=== PATIENT | male | born 1975 | race Asian ===

== ENCOUNTER 2016-08-05 09:35 | Outpatient (CLI) | payer OTHER ==
[2016-08-05 10:25] LABS: BASOPHILS # (AUTO) 0.1 K/uL (0.0-0.2); BASOPHILS % (AUTO) 1.2 % (0.0-2.0); EOSINOPHILS # (AUTO) 0.2 K/uL (0.0-0.4); HEMATOCRIT 52.2 % (36-54); HEMOGLOBIN 16.8 g/dL (14.0-18.0); LYMPHOCYTES # (AUTO) 1.8 K/uL (1.0-5.5); LYMPHOCYTES % (AUTO) 20.9 % (20.5-51.5); MEAN CORPUSCULAR HEMOGLOBIN 29 pg (27-31); MEAN CORPUSCULAR HGB CONC 32 % (32-36); MEAN CORPUSCULAR VOLUME 89 fL (79.0-98.0); MONOCYTES # (AUTO) 0.6 K/uL (0.0-1.0); MONOCYTES % (AUTO) 6.5 % (1.7-9.3); NEUTROPHILS # (AUTO) 6.1 K/uL (1.8-7.7); NEUTROPHILS % (AUTO) 69.4 % (40.0-70.0); PLATELET COUNT (AUTO) 396 K/uL (130-430); RED BLOOD CELL COUNT(AUTO) 5.89 MIL/uL (4.2-6.2); RED CELL DISTRIBUTION WIDTH 12.5 % (9.0-15.0); WHITE BLOOD COUNT (AUTO) 8.8 K/uL (4.8-10.8)
[2016-08-05 10:30] LABS: BILIRUBIN,URINE NEGATIVE (NEGATIVE); BLOOD, URINE 2+ (NEGATIVE); CLARITY/URINE CLEAR (CLEAR); COLOR,URINE YELLOW (YELLOW); GLUCOSE,URINE NEGATIVE (NEGATIVE); KETONES,URINE NEGATIVE (NEGATIVE); LEUKOCYTE ESTERASE ,URINE NEGATIVE (NEGATIVE); NITRITE, URINE NEGATIVE (NEGATIVE); PH,URINE 6.5 (5.0-8.0); PROTEIN URINE NEGATIVE (NEGATIVE); UROBILINOGEN,URINE 0.2 (0.2-1.0)
[2016-08-05 10:35] LABS: BACTERIA,URINE RARE /HPF (None Seen); MUCUS,URINE None Seen /LPF (None Seen); WBC,URINE 0-3 /HPF (0-3)
[2016-08-05 10:45] LABS: ALBUMIN 4.1 g/dL (3.4-4.8); CALCIUM 9.5 mg/dL (8.4-11.0); CREATININE 1.29 mg/dL (0.55-1.30); POTASSIUM 3.8 mmol/L (3.5-5.1); THYROID STIMULATING HORMONE 0.9 uIu/mL (0.34-4.82); TOTAL BILIRUBIN 0.5 mg/dL (0.0-1.0); TOTAL PROTEIN, SERUM 8.7 g/dL (6.4-8.3)
[2016-08-07] LABS: HEMOGLOBIN A1C 8.4 % (4.8-5.6)
== END 2016-08-05 18:20 | disposition home or self-care (01) ==
LOC: SLB 09:35
PROVIDERS: ATTEND Internal Medicine
DX: E11.65 Type 2 diabetes mellitus with hyperglycemia (principal); E66.9 Obesity, unspecified; R31.9 Hematuria, unspecified; Z90.49 Acquired absence of other specified parts of digestive tract; R16.1 Splenomegaly, not elsewhere classified; R16.0 Hepatomegaly, not elsewhere classified; K76.0 Fatty (change of) liver, not elsewhere classified
CPT/HCPCS: 36415; 76700-TC; 80053; 80061; 81000-TC; 82306; 82607; 83036; 84443-TC; 85025

== ENCOUNTER 2016-09-28 12:17 | Outpatient (CLI) | payer OTHER | END 2016-09-28 18:32 | disposition home or self-care (01) | LOC: SUS 12:17 | PROVIDERS: ATTEND Internal Medicine | DX: N20.0 Calculus of kidney (principal); N28.1 Cyst of kidney, acquired; N13.30 Unspecified hydronephrosis | CPT/HCPCS: 76770 ==

== ENCOUNTER 2016-10-01 11:59 | Inpatient (IN) | payer OTHER ==
[~2016-10-01] VITALS: Ht 170.2 cm; Wt 91.6 kg
[2016-10-01 12:13] VITALS: BP_SYST 139
[2016-10-01 12:44] LABS: BASOPHILS # (AUTO) 0.1 K/uL (0.0-0.2); BASOPHILS % (AUTO) 0.8 % (0.0-2.0); BILIRUBIN,URINE NEGATIVE (NEGATIVE); BLOOD, URINE 2+ (NEGATIVE); CLARITY/URINE CLEAR (CLEAR); COLOR,URINE YELLOW (YELLOW); EOSINOPHILS # (AUTO) 0.1 K/uL (0.0-0.4); EOSINOPHILS % (AUTO) 0.5 % (0.0-4.0); GLUCOSE,URINE NEGATIVE (NEGATIVE); HEMATOCRIT 45.2 % (36-54); HEMOGLOBIN 14.9 g/dL (14.0-18.0); KETONES,URINE NEGATIVE (NEGATIVE); LEUKOCYTE ESTERASE ,URINE 1+ (NEGATIVE); LYMPHOCYTES # (AUTO) 1.5 K/uL (1.0-5.5); LYMPHOCYTES % (AUTO) 8.9 % (20.5-51.5); MEAN CORPUSCULAR HEMOGLOBIN 29 pg (27-31); MEAN CORPUSCULAR HGB CONC 33 % (32-36); MEAN CORPUSCULAR VOLUME 88 fL (79.0-98.0); MONOCYTES # (AUTO) 0.6 K/uL (0.0-1.0); MONOCYTES % (AUTO) 3.8 % (1.7-9.3); NEUTROPHILS # (AUTO) 14.1 K/uL (1.8-7.7); NITRITE, URINE NEGATIVE (NEGATIVE); PH,URINE 5.5 (5.0-8.0); PLATELET COUNT (AUTO) 707 K/uL (130-430); PROTEIN URINE NEGATIVE (NEGATIVE); RED BLOOD CELL COUNT(AUTO) 5.16 MIL/uL (4.2-6.2); RED CELL DISTRIBUTION WIDTH 12.2 % (9.0-15.0); UROBILINOGEN,URINE 0.2 (0.2-1.0); WHITE BLOOD COUNT (AUTO) 16.4 K/uL (4.8-10.8)
[2016-10-01 12:51] LABS: BACTERIA,URINE FEW /HPF (None Seen)
[2016-10-01 12:52] LABS: MUCUS,URINE 1+ /LPF (None Seen)
[2016-10-01 12:53] LABS: CALCIUM 9.8 mg/dL (8.4-11.0); CREATININE 1.72 mg/dL (0.55-1.30); POTASSIUM 4.3 mmol/L (3.5-5.1)
[2016-10-01 12:58] LABS: TOTAL BILIRUBIN 0.4 mg/dL (0.0-1.0)
[2016-10-01] MEDS ORDERED: cefTRIAXone 1 GM in D5W 50 ML IV ONE (13:15)
[2016-10-01] MEDS: 0.45% NS 1,000 ML IV SCH ×2 (13:45→23:11)
[2016-10-01] MEDS ORDERED: cefTRIAXone 1 GM IVPB PREMIX 50 ML IV ONE (13:45)
[2016-10-01] MEDS ORDERED: DILT240C91 PO (14:11)
[2016-10-01] MEDS ORDERED: FOLI-59 PO (14:11)
[2016-10-01] MEDS ORDERED: OLME20TA14 PO (14:11)
[2016-10-01] MEDS ORDERED: MAGN500C17 PO (14:11)
[2016-10-01] MEDS ORDERED: GLU500 PO (14:11)
[2016-10-01] MEDS ORDERED: DOXA2TAB PO (14:11)
[2016-10-01 14:32] VITALS: BP_SYST 151
[2016-10-01 15:50] LABS: PROTHROMBIN TIME 10.4 SECS (9.5-12.5)
[2016-10-01 16:17] VITALS: BP_SYST 134
[2016-10-01] MEDS ORDERED: TEMAZEPAM 15 MG CAPSULE PO PRN (19:30)
[2016-10-01] MEDS ORDERED: HYDROcodone/ACETAMIN 5-325 MG TAB (NORCO/ VICODIN) PO PRN (19:30)
[2016-10-01] MEDS ORDERED: DEXTROSE 50% JECT 50 ML DISP.SYRIN IVP PRN (19:30)
[2016-10-01] MEDS ORDERED: ACETAMINOPHEN 325 MG TABLET PO PRN (19:30)
[2016-10-01] MEDS ORDERED: ONDANSETRON HCL 4 MG/2 ML VIAL IVP PRN (19:30)
[2016-10-01] MEDS: cefTRIAXone 1 GM in D5W 50 ML IV SCH (19:30)
[2016-10-01] MEDS ORDERED: DOXAZOSIN MESYLATE 2 MG TABLET PO ONE (19:45)
[2016-10-01] MEDS ORDERED: TAMSULOSIN HCL 0.4 MG CAP PO ONE (19:45)
[2016-10-01 20:00] VITALS: BP_SYST 132
[2016-10-01] MEDS ORDERED: MORPHINE 4 MG/ML INJ. SYRINGE IVP PRN (20:00)
[2016-10-01] MEDS: TAMSULOSIN HCL 0.4 MG CAP PO SCH (20:15)
[2016-10-01] MEDS: DILTIAZEM HCL 240 MG CAP.SR.24H PO SCH (20:15)
[2016-10-01] MEDS: MORPHINE 2 MG/ML INJ. SYRINGE IVP PRN (20:16)
[2016-10-01] MEDS: metroNIDAZOLE 500 mg/NS 100 ML IV SCH (21:13)
[2016-10-01] MEDS: HYDROmorphone 1 MG INJ. 1 MG/ML AMPUL IVP PRN (23:11)
[2016-10-01] MEDS ORDERED: DOCUSATE SODIUM 250 MG CAPSULE PO ONE ×2 (23:15)
[2016-10-02] VITALS (7 sets, daily range): BP systolic 111–149
[2016-10-02] MEDS: HYDROmorphone 1 MG INJ. 1 MG/ML AMPUL IVP PRN ×5 (04:29→23:37)
[2016-10-02] MEDS: metroNIDAZOLE 500 mg/NS 100 ML IV SCH ×3 (06:18→21:26)
[2016-10-02 06:19] LABS: BASOPHILS % (AUTO) 0.3 % (0.0-2.0); EOSINOPHILS # (AUTO) 0.1 K/uL (0.0-0.4); EOSINOPHILS % (AUTO) 0.8 % (0.0-4.0); HEMATOCRIT 38.8 % (36-54); HEMOGLOBIN 13.1 g/dL (14.0-18.0); LYMPHOCYTES # (AUTO) 1.2 K/uL (1.0-5.5); LYMPHOCYTES % (AUTO) 7.7 % (20.5-51.5); MEAN CORPUSCULAR HEMOGLOBIN 29 pg (27-31); MEAN CORPUSCULAR HGB CONC 34 % (32-36); MEAN CORPUSCULAR VOLUME 87 fL (79.0-98.0); MONOCYTES # (AUTO) 0.7 K/uL (0.0-1.0); MONOCYTES % (AUTO) 4.9 % (1.7-9.3); NEUTROPHILS % (AUTO) 86.3 % (40.0-70.0); RED BLOOD CELL COUNT(AUTO) 4.46 MIL/uL (4.2-6.2); RED CELL DISTRIBUTION WIDTH 12.3 % (9.0-15.0)
[2016-10-02 06:28] LABS: PLATELET COUNT (AUTO) 636 K/uL (130-430)
[2016-10-02 06:48] LABS: ALBUMIN 3.4 g/dL (3.4-4.8); CALCIUM 8.7 mg/dL (8.4-11.0); CREATININE 1.93 mg/dL (0.55-1.30); THYROID STIMULATING HORMONE 1.61 uIu/mL (0.34-4.82); TOTAL BILIRUBIN 0.6 mg/dL (0.0-1.0); TOTAL PROTEIN, SERUM 7.7 g/dL (6.4-8.3)
[2016-10-02] MEDS ORDERED: NS 1000 ML BAG IV ONE (08:06)
[2016-10-02] MEDS ORDERED: fentaNYL CITRATE/PF 100 MCG/2 ML AMP IVP ONE (08:06)
[2016-10-02] MEDS ORDERED: SEVOFLURANE 15 MIN GAS INH ONE (08:06)
[2016-10-02] MEDS ORDERED: KETOROLAC TROMETHAMINE 30 MG VIAL IVP ONE (08:06)
[2016-10-02] MEDS ORDERED: MIDAZOLAM HCL 5 MG/5 ML VIAL IVP ONE (08:06)
[2016-10-02] MEDS ORDERED: ONDANSETRON HCL 4 MG/2 ML VIAL IVP ONE (08:06)
[2016-10-02] MEDS ORDERED: PROPOFOL 200MG/ 20ML VIAL (DIPRIVAN) IV ONE (08:06)
[2016-10-02] MEDS ORDERED: NS IRRIG SOLN 5000 ML IR ONE (08:06)
[2016-10-02] MEDS ORDERED: IOHEXOL 0 ML IV ONE (08:33)
[2016-10-02] MEDS ORDERED: NACL 0.9% 1,000 ML IV SCH (08:55)
[2016-10-02] MEDS ORDERED: KETOROLAC TROMETHAMINE 30 MG VIAL IVP PRN (09:00)
[2016-10-02] MEDS ORDERED: LOSARTAN POTASSIUM 50 MG TABLET (COZAAR) PO SCH (09:00)
[2016-10-02] MEDS ORDERED: MEPERIDINE HCL/PF 25 MG/ML DISP.SYRIN IVP PRN ×2 (09:00)
[2016-10-02] MEDS ORDERED: OLMESARTAN MEDOXOMIL 20 MG TABLET PO SCH (09:00)
[2016-10-02] MEDS ORDERED: HYDROmorphone 2 MG/ML VIAL IVP PRN ×2 (09:00)
[2016-10-02] MEDS ORDERED: HYDROmorphone 1 MG INJ. 1 MG/ML AMPUL IVP PRN (09:00)
[2016-10-02] MEDS ORDERED: ONDANSETRON HCL 4 MG/2 ML VIAL IVP PRN (09:00)
[2016-10-02] MEDS: 0.45% NS 1,000 ML IV SCH ×3 (09:45→23:39)
[2016-10-02] MEDS: DOCUSATE SODIUM 250 MG CAPSULE PO SCH ×2 (10:34→20:44)
[2016-10-02] MEDS: DILTIAZEM HCL 240 MG CAP.SR.24H PO SCH ×2 (10:35→20:44)
[2016-10-02] MEDS: TAMSULOSIN HCL 0.4 MG CAP PO SCH ×2 (10:35→21:26)
[2016-10-02] MEDS: INSULIN REGULAR, HUMAN 100 UNITS/ML, 10 ML VIAL (novoLIN R) SUBCUT PRN ×2 (17:34→21:29)
[2016-10-02] MEDS ORDERED: DOXAZOSIN MESYLATE 2 MG TABLET PO SCH (18:00)
[2016-10-02] MEDS: MORPHINE 2 MG/ML INJ. SYRINGE IVP PRN (18:44)
[2016-10-02] MEDS: cefTRIAXone 1 GM in D5W 50 ML IV SCH (18:46)
[2016-10-03 00:19] VITALS: BP_SYST 132
[2016-10-03] MEDS: HYDROmorphone 1 MG INJ. 1 MG/ML AMPUL IVP PRN ×2 (02:27→04:30)
[2016-10-03 04:00] VITALS: BP_SYST 145
[2016-10-03] MEDS: metroNIDAZOLE 500 mg/NS 100 ML IV SCH ×3 (05:58→21:25)
[2016-10-03] MEDS: INSULIN REGULAR, HUMAN 100 UNITS/ML, 10 ML VIAL (novoLIN R) SUBCUT PRN (06:02)
[2016-10-03 06:50] LABS: CALCIUM 8.9 mg/dL (8.4-11.0); CREATININE 1.69 mg/dL (0.55-1.30); HEMATOCRIT 37.6 % (36-54); HEMOGLOBIN 12.7 g/dL (14.0-18.0); MEAN CORPUSCULAR HEMOGLOBIN 30 pg (27-31); MEAN CORPUSCULAR HGB CONC 34 % (32-36); MEAN CORPUSCULAR VOLUME 88 fL (79.0-98.0); PHOSPHORUS 4.4 mg/dL (2.7-4.5); PLATELET COUNT (AUTO) 599 K/uL (130-430); RED BLOOD CELL COUNT(AUTO) 4.26 MIL/uL (4.2-6.2); RED CELL DISTRIBUTION WIDTH 12.2 % (9.0-15.0)
[2016-10-03 07:27] LABS: WHITE BLOOD COUNT (AUTO) 19.4 K/uL (4.8-10.8)
[2016-10-03 08:18] VITALS: BP_SYST 142
[2016-10-03] MEDS: DILTIAZEM HCL 240 MG CAP.SR.24H PO SCH ×2 (08:52→21:27)
[2016-10-03] MEDS: DOCUSATE SODIUM 250 MG CAPSULE PO SCH ×2 (08:53→21:26)
[2016-10-03] MEDS: TAMSULOSIN HCL 0.4 MG CAP PO SCH ×2 (08:53→21:26)
[2016-10-03 09:55] LABS: ATYPICAL LYMPHOCYTES % 0 % (0-0); BAND % (MANUAL) 0 % (0-6); BASOPHILS % (MANUAL) 0 % (0-2); EOSINOPHILS % (MANUAL) 0 % (0-7); LYMPHOCYTES % (MANUAL) 4 % (20-46); MONOCYTES % (MANUAL) 5 % (0-11)
[2016-10-03] MEDS: 0.45% NS 1,000 ML IV SCH ×2 (10:44→21:30)
[2016-10-03 12:03] VITALS: BP_SYST 123
[2016-10-03] MEDS: PIPERACILLIN/TAZO 2.25G/DEX-IS 50 ML IV SCH ×3 (13:12→23:17)
[2016-10-03 16:21] VITALS: BP_SYST 148
[2016-10-03 20:00] VITALS: BP_SYST 119
[2016-10-03] MEDS: LACTOBACILLUS RHAMNOSUS GG 1 CAP CAPSULE PO SCH (21:26)
[2016-10-04] VITALS: BP_SYST 127
[2016-10-04 01:12] LABS: % FREE PSA 15.6 % (.); FREE PSA 0.14 ng/mL; PROSTATE SPECIFIC AG TOTAL 0.9 ng/mL (0.0-4.0)
[2016-10-04 04:00] VITALS: BP_SYST 120
[2016-10-04] MEDS: PIPERACILLIN/TAZO 2.25G/DEX-IS 50 ML IV SCH ×4 (05:17→23:46)
[2016-10-04] MEDS: 0.45% NS 1,000 ML IV SCH ×2 (05:17→19:08)
[2016-10-04] MEDS: metroNIDAZOLE 500 mg/NS 100 ML IV SCH ×3 (05:44→21:07)
[2016-10-04 06:40] LABS: CALCIUM 8.9 mg/dL (8.4-11.0); CREATININE 1.52 mg/dL (0.55-1.30); POTASSIUM 3.7 mmol/L (3.5-5.1)
[2016-10-04 06:57] LABS: HEMATOCRIT 39.9 % (36-54); HEMOGLOBIN 13.4 g/dL (14.0-18.0); MEAN CORPUSCULAR HEMOGLOBIN 30 pg (27-31); MEAN CORPUSCULAR HGB CONC 34 % (32-36); MEAN CORPUSCULAR VOLUME 89 fL (79.0-98.0); PLATELET COUNT (AUTO) 627 K/uL (130-430); RED BLOOD CELL COUNT(AUTO) 4.46 MIL/uL (4.2-6.2); RED CELL DISTRIBUTION WIDTH 12.4 % (9.0-15.0)
[2016-10-04 07:56] VITALS: BP_SYST 122
[2016-10-04] MEDS: DILTIAZEM HCL 240 MG CAP.SR.24H PO SCH ×2 (08:14→21:09)
[2016-10-04] MEDS: TAMSULOSIN HCL 0.4 MG CAP PO SCH ×2 (08:14→21:07)
[2016-10-04] MEDS: LACTOBACILLUS RHAMNOSUS GG 1 CAP CAPSULE PO SCH ×2 (08:15→21:07)
[2016-10-04] MEDS: DOCUSATE SODIUM 250 MG CAPSULE PO SCH ×2 (08:15→21:00)
[2016-10-04 09:49] LABS: ATYPICAL LYMPHOCYTES % 0 % (0-0); BAND % (MANUAL) 0 % (0-6); BASOPHILS % (MANUAL) 0 % (0-2); EOSINOPHILS % (MANUAL) 2 % (0-7); LYMPHOCYTES % (MANUAL) 8 % (20-46); MONOCYTES % (MANUAL) 7 % (0-11)
[2016-10-04 12:30] VITALS: BP_SYST 143
[2016-10-04 16:12] VITALS: BP_SYST 138
[2016-10-04] MEDS: HYDROmorphone 1 MG INJ. 1 MG/ML AMPUL IVP PRN ×2 (16:14→19:46)
[2016-10-04 20:00] VITALS: BP_SYST 136
[2016-10-05 00:03] VITALS: BP_SYST 107
[2016-10-05 04:16] VITALS: BP_SYST 113
[2016-10-05] MEDS: 0.45% NS 1,000 ML IV SCH (05:06)
[2016-10-05] MEDS: PIPERACILLIN/TAZO 2.25G/DEX-IS 50 ML IV SCH ×2 (05:06→11:33)
[2016-10-05] MEDS: metroNIDAZOLE 500 mg/NS 100 ML IV SCH ×2 (06:08→13:09)
[2016-10-05 06:50] LABS: CREATININE 1.44 mg/dL (0.55-1.30); POTASSIUM 3.6 mmol/L (3.5-5.1)
[2016-10-05 07:03] LABS: BASOPHILS # (AUTO) 0.1 K/uL (0.0-0.2); BASOPHILS % (AUTO) 0.4 % (0.0-2.0); EOSINOPHILS # (AUTO) 0.2 K/uL (0.0-0.4); EOSINOPHILS % (AUTO) 1.3 % (0.0-4.0); HEMATOCRIT 38.2 % (36-54); HEMOGLOBIN 12.9 g/dL (14.0-18.0); LYMPHOCYTES # (AUTO) 1.4 K/uL (1.0-5.5); LYMPHOCYTES % (AUTO) 9.8 % (20.5-51.5); MEAN CORPUSCULAR HEMOGLOBIN 30 pg (27-31); MEAN CORPUSCULAR HGB CONC 34 % (32-36); MEAN CORPUSCULAR VOLUME 88 fL (79.0-98.0); NEUTROPHILS # (AUTO) 11.4 K/uL (1.8-7.7); NEUTROPHILS % (AUTO) 81.5 % (40.0-70.0); PLATELET COUNT (AUTO) 587 K/uL (130-430); RED BLOOD CELL COUNT(AUTO) 4.35 MIL/uL (4.2-6.2); RED CELL DISTRIBUTION WIDTH 12.1 % (9.0-15.0); WHITE BLOOD COUNT (AUTO) 14.1 K/uL (4.8-10.8)
[2016-10-05 07:55] VITALS: BP_SYST 135
[2016-10-05] MEDS: DOCUSATE SODIUM 250 MG CAPSULE PO SCH (09:00)
[2016-10-05] MEDS: LACTOBACILLUS RHAMNOSUS GG 1 CAP CAPSULE PO SCH (09:26)
[2016-10-05] MEDS: DILTIAZEM HCL 240 MG CAP.SR.24H PO SCH (09:27)
[2016-10-05] MEDS: TAMSULOSIN HCL 0.4 MG CAP PO SCH (09:28)
[2016-10-05 11:23] VITALS: BP_SYST 136
[2016-10-05] MEDS ORDERED: AMOX-426 PO (13:30)
[2016-10-05] MEDS ORDERED: LACT1CAP57 PO (13:31)
[2016-10-05] MEDS ORDERED: METR500T PO (13:31)
== END 2016-10-05 15:35 | disposition home or self-care (01) | DRG 694 ==
LOC: SED 11:59 → STU 13:45 → SMU 14:25
PROVIDERS: ADMIT Internal Medicine; ATTEND Internal Medicine
PROC: 0T778DZ Dilation of Left Ureter with Intraluminal Device, Via Natural or Artificial Opening Endoscopic (ICD-10-PCS; principal; 2016-10-02 08:30)
DX: N13.2 Hydronephrosis with renal and ureteral calculous obstruction (principal); E87.1 Hypo-osmolality and hyponatremia; E11.9 Type 2 diabetes mellitus without complications; N17.9 Acute kidney failure, unspecified; E66.9 Obesity, unspecified; I10 Essential (primary) hypertension; Z82.49 Family history of ischemic heart disease and other diseases of the circulatory system; Z68.31 Body mass index [BMI] 31.0-31.9, adult; Z83.3 Family history of diabetes mellitus; Z87.891 Personal history of nicotine dependence; Z88.8 Allergy status to other drugs, medicaments and biological substances; Z90.49 Acquired absence of other specified parts of digestive tract; Z84.1 Family history of disorders of kidney and ureter
CPT/HCPCS: 36415; 76000; 76770; 80048; 80053; 80061; 81000-TC; 82306; 82962; 83036; 83605; 83735-TC; 84100-TC; 84153; 84443-TC; 84550-TC; 85007; 85025; 85027; 85610-TC; 85730-TC; 87040-TC; 87081; 87086; 94010; 96365; 99285; C1769; C2625; J0696; J1170; J1815; J1885; J2250; J2270; J2405; J2543; J2704; J3010; J3490; J7030; J7060; Q9967

== ENCOUNTER 2016-10-11 12:31 | Outpatient (CLI) | payer OTHER ==
[2016-10-04 12:00] VITALS: BMI 31.6
[~2016-10-11 12:31] MED LIST: AMOX-426 PO; DILT240C91 PO; DOXA2TAB PO; FOLI-59 PO; GLU500 PO; LACT1CAP57 PO; MAGN500C17 PO; METR500T PO; OLME20TA14 PO
[2016-10-11 13:00] LABS: BASOPHILS # (AUTO) 0.1 K/uL (0.0-0.2); EOSINOPHILS # (AUTO) 0.2 K/uL (0.0-0.4); EOSINOPHILS % (AUTO) 2.4 % (0.0-4.0); HEMATOCRIT 43.5 % (36-54); HEMOGLOBIN 14.6 g/dL (14.0-18.0); LYMPHOCYTES # (AUTO) 1.4 K/uL (1.0-5.5); LYMPHOCYTES % (AUTO) 13.5 % (20.5-51.5); MEAN CORPUSCULAR HEMOGLOBIN 29 pg (27-31); MEAN CORPUSCULAR HGB CONC 34 % (32-36); MEAN CORPUSCULAR VOLUME 88 fL (79.0-98.0); MONOCYTES # (AUTO) 0.6 K/uL (0.0-1.0); MONOCYTES % (AUTO) 6.1 % (1.7-9.3); NEUTROPHILS # (AUTO) 7.7 K/uL (1.8-7.7); PLATELET COUNT (AUTO) 547 K/uL (130-430); RED BLOOD CELL COUNT(AUTO) 4.97 MIL/uL (4.2-6.2); RED CELL DISTRIBUTION WIDTH 12.4 % (9.0-15.0)
[2016-10-11 13:07] LABS: CALCIUM 9.3 mg/dL (8.4-11.0); CREATININE 1.31 mg/dL (0.55-1.30)
== END 2016-10-11 20:57 | disposition home or self-care (01) ==
LOC: SLB 12:31
PROVIDERS: ATTEND Internal Medicine
DX: N39.0 Urinary tract infection, site not specified (principal); N20.0 Calculus of kidney
CPT/HCPCS: 36415; 80048; 85025

== ENCOUNTER 2016-10-31 10:57 | Outpatient (CLI) | payer OTHER ==
[2016-10-26 09:45] LABS: BILIRUBIN,URINE 1+ (NEGATIVE); BLOOD, URINE 3+ (NEGATIVE); CLARITY/URINE CLOUDY (CLEAR); COLOR,URINE AMBER (YELLOW); GLUCOSE,URINE NEGATIVE (NEGATIVE); KETONES,URINE NEGATIVE (NEGATIVE); LEUKOCYTE ESTERASE ,URINE 1+ (NEGATIVE); NITRITE, URINE NEGATIVE (NEGATIVE); PROTEIN URINE 2+ (NEGATIVE); UROBILINOGEN,URINE 0.2 (0.2-1.0)
[2016-10-26 09:54] LABS: CALCIUM 10.1 mg/dL (8.4-11.0); CREATININE 1.14 mg/dL (0.55-1.30); POTASSIUM 4.1 mmol/L (3.5-5.1)
[2016-10-26 09:55] LABS: BACTERIA,URINE MODERATE /HPF (None Seen); RBC,URINE >100 /HPF (0-3)
[2016-10-26 09:58] LABS: INR 0.9 (0.80-1.20); PROTHROMBIN TIME 10.2 SECS (9.5-12.5)
[2016-10-26 09:59] LABS: BASOPHILS % (AUTO) 0.4 % (0.0-2.0); EOSINOPHILS # (AUTO) 0.1 K/uL (0.0-0.4); EOSINOPHILS % (AUTO) 1.6 % (0.0-4.0); HEMATOCRIT 46.3 % (36-54); HEMOGLOBIN 15.1 g/dL (14.0-18.0); LYMPHOCYTES # (AUTO) 1.3 K/uL (1.0-5.5); MEAN CORPUSCULAR HEMOGLOBIN 29 pg (27-31); MEAN CORPUSCULAR HGB CONC 33 % (32-36); MEAN CORPUSCULAR VOLUME 89 fL (79.0-98.0); MONOCYTES # (AUTO) 0.3 K/uL (0.0-1.0); MONOCYTES % (AUTO) 3.8 % (1.7-9.3); NEUTROPHILS # (AUTO) 7.2 K/uL (1.8-7.7); NEUTROPHILS % (AUTO) 79.2 % (40.0-70.0); PLATELET COUNT (AUTO) 521 K/uL (130-430); RED BLOOD CELL COUNT(AUTO) 5.23 MIL/uL (4.2-6.2); RED CELL DISTRIBUTION WIDTH 12.7 % (9.0-15.0); WHITE BLOOD COUNT (AUTO) 8.9 K/uL (4.8-10.8)
[~2016-10-31] VITALS: Ht 170.2 cm; Wt 90.7 kg
[~2016-10-31 10:57] MED LIST changes: +CEFTRIAXONE SOD 1 GM/ DEXTROSE,ISO 50 ML PREMIX IV ONE
[2016-10-31 12:31] VITALS: BP_SYST 127
== END 2016-10-31 12:15 | disposition home or self-care (01) ==
LOC: SDS 10:57 → SRD 10:57 → SMU 10:58 → SDS 10:58 → SRD 12:15 → SMU 12:15 → SDS 12:15 → EDSTATUS 11-08 14:30
PROVIDERS: ATTEND Urology
DX: Z01.818 Encounter for other preprocedural examination (principal); N20.1 Calculus of ureter
CPT/HCPCS: 36415; 80048; 81000; 82962; 85025; 85610; 85730; 87086; J0696; J7120

== ENCOUNTER 2016-11-04 10:50 | Day surgery (SDC) | payer OTHER ==
[~2016-11-04] VITALS: Ht 170.2 cm; Wt 90.7 kg
[~2016-11-04 10:50] MED LIST changes: -CEFTRIAXONE SOD 1 GM/ DEXTROSE,ISO 50 ML PREMIX IV ONE
[2016-11-04] MEDS ORDERED: cefTRIAXone 1 GM IVPB PREMIX 50 ML IV ONE ×2 (11:30→11:50)
[2016-11-04] MEDS ORDERED: fentaNYL CITRATE 250 MCG/5 ML AMP IV ONE (11:50)
[2016-11-04] MEDS ORDERED: PROPOFOL 200MG/ 20ML VIAL (DIPRIVAN) IV ONE (11:50)
[2016-11-04] MEDS ORDERED: KETAMINE HCL 500 MG/10 ML VIAL IVP ONE (11:50)
[2016-11-04] MEDS ORDERED: MIDAZOLAM HCL 5 MG/5 ML VIAL IVP ONE (11:50)
[2016-11-04] MEDS ORDERED: ROCURONIUM BROMIDE 10 MG/ML (ZEMURON) IV ONE (11:50)
[2016-11-04] MEDS ORDERED: KETOROLAC TROMETHAMINE 30 MG VIAL IVP ONE (11:50)
[2016-11-04] MEDS ORDERED: GLYCOPYRROLATE 0.2 MG/ML VIAL IJ ONE (11:50)
[2016-11-04] MEDS ORDERED: ONDANSETRON HCL 4 MG/2 ML VIAL IVP ONE (11:50)
[2016-11-04] MEDS ORDERED: DEXAMETHASONE SOD PHOSPHATE 4 MG/ML VIAL IVP ONE (11:50)
[2016-11-04] MEDS ORDERED: SEVOFLURANE 15 MIN GAS INH ONE (11:50)
[2016-11-04] MEDS ORDERED: IOHEXOL 0 ML IV ONE (12:26)
[2016-11-04] MEDS ORDERED: LR 1,000 ML IV SCH (13:25)
[2016-11-04] MEDS ORDERED: MEPERIDINE HCL/PF 25 MG/ML DISP.SYRIN IVP PRN (13:30)
[2016-11-04] MEDS ORDERED: HYDROmorphone 1 MG INJ. 1 MG/ML AMPUL IVP PRN (13:30)
[2016-11-04] MEDS ORDERED: HYDROmorphone 2 MG/ML VIAL IVP PRN ×2 (13:30)
[2016-11-04 15:24] VITALS: BP_SYST 121
== END 2016-11-04 15:05 | disposition home or self-care (01) ==
LOC: SDS 10:50
PROVIDERS: ATTEND Urology
DX: N20.2 Calculus of kidney with calculus of ureter (principal); N28.9 Disorder of kidney and ureter, unspecified; E11.9 Type 2 diabetes mellitus without complications; I10 Essential (primary) hypertension; E66.9 Obesity, unspecified
CPT/HCPCS: 52356; 82962; C1769; C2625; J0696; J1100; J1170; J1885; J2250; J2405; J2704; J3010; J3490; J7120; Q9967

== ENCOUNTER 2017-06-09 05:48 | Emergency (ER) | payer OTHER ==
[~2017-06-09] VITALS: Ht 170.2 cm; Wt 96.6 kg
[2017-06-09 06:32] VITALS: BP_SYST 170
[2017-06-09 07:32] VITALS: BP_SYST 156
== END 2017-06-09 07:32 | disposition home or self-care (01) ==
LOC: SED 05:48
DX: J40 Bronchitis, not specified as acute or chronic (principal)
CPT/HCPCS: 99283

== ENCOUNTER 2017-06-26 20:45 | Emergency (ER) | payer OTHER ==
[~2017-06-26] VITALS: Ht 170.2 cm; Wt 97.5 kg
[2017-06-26 20:45] VITALS: BP_SYST 155
--- NOTE | 2017-06-27 00:48 | NUR ---
Patient to ER bed [facility] to [facility] for evaluation. Side rails up. Report given to GAYLE ZALDIVAR.
--- NOTE | 2017-06-27 00:51 | NUR ---
Pt ambulated into ED c/o loud high pitched ringing in R ear. Pt states he woke up this morning having muffled hearing to R ear which gradually changed to ringing. Pt reports the ringing has became louder since checking into ED. Pt denies LOC, N/V. at bedside. No other injuries/complaints per pt/noted. Will continue to monitor.
--- NOTE | 2017-06-27 01:03 | NUR ---
ER IN [facility] examining patient.
[2017-06-27 01:10] VITALS: BP_SYST 146
--- NOTE | 2017-06-27 01:10 | NUR ---
Patient given written and verbal discharge instructions and verbalizes understanding. ER MD Sparks discussed with patient the results and treatment provided. Patient in stable condition. ID arm band removed. Rx of Biaxin Filmtab given. Patient educated on pain management and to follow up with PMD. Pain Scale 0. Opportunity for questions provided and answered.
== END 2017-06-27 01:10 | disposition home or self-care (01) ==
LOC: SED 20:45
DX: H66.93 Otitis media, unspecified, bilateral (principal); J06.9 Acute upper respiratory infection, unspecified; E11.9 Type 2 diabetes mellitus without complications; I10 Essential (primary) hypertension; Z90.49 Acquired absence of other specified parts of digestive tract; Z88.8 Allergy status to other drugs, medicaments and biological substances; Z79.899 Other long term (current) drug therapy
CPT/HCPCS: 99283

== ENCOUNTER 2017-07-04 15:49 | Outpatient (CLI) | payer OTHER ==
[2017-07-04 16:42] LABS: CALCIUM 10.5 mg/dL (8.4-11.0); CREATININE 1.4 mg/dL (0.55-1.30); POTASSIUM 4.5 mmol/L (3.5-5.1)
== END 2017-07-04 20:19 | disposition home or self-care (01) ==
LOC: SLB 15:49
PROVIDERS: ATTEND Internal Medicine
DX: E11.9 Type 2 diabetes mellitus without complications (principal)
CPT/HCPCS: 36415; 80048

== ENCOUNTER 2017-07-05 10:17 | Outpatient (CLI) | payer OTHER ==
[2017-07-05] MEDS ORDERED: GADOPENTETATE DIMEGLUMINE 15 ML VIAL IV ONE (10:56)
== END 2017-07-05 18:37 | disposition home or self-care (01) ==
LOC: SMI 10:17
PROVIDERS: ATTEND Internal Medicine
DX: H91.90 Unspecified hearing loss, unspecified ear (principal); E11.9 Type 2 diabetes mellitus without complications; I10 Essential (primary) hypertension
CPT/HCPCS: 70553; A9579

== ENCOUNTER 2017-09-30 14:04 | Emergency (ER) | payer OTHER ==
[~2017-09-30] VITALS: Ht 170.2 cm; Wt 98.9 kg
[2017-09-30 14:04] VITALS: BP_SYST 150
[2017-09-30 15:24] VITALS: BP_SYST 142
== END 2017-09-30 15:22 | disposition home or self-care (01) ==
LOC: SED 14:04
DX: H10.213 Acute toxic conjunctivitis, bilateral (principal); E11.9 Type 2 diabetes mellitus without complications; I10 Essential (primary) hypertension; Z88.8 Allergy status to other drugs, medicaments and biological substances; Z79.899 Other long term (current) drug therapy
CPT/HCPCS: 99283

== ENCOUNTER 2018-09-14 10:44 | Outpatient (CLI) | payer OTHER ==
[2018-09-14 11:31] LABS: BILIRUBIN,URINE NEGATIVE (NEGATIVE); BLOOD, URINE NEGATIVE (NEGATIVE); CLARITY/URINE CLEAR (CLEAR); COLOR,URINE YELLOW (YELLOW); GLUCOSE,URINE NEGATIVE (NEGATIVE); KETONES,URINE NEGATIVE (NEGATIVE); LEUKOCYTE ESTERASE ,URINE NEGATIVE (NEGATIVE); NITRITE, URINE NEGATIVE (NEGATIVE); PH,URINE 5.5 (5.0-8.0); PROTEIN URINE NEGATIVE (NEGATIVE); UROBILINOGEN,URINE 0.2 (0.2-1.0)
[2018-09-14 11:38] LABS: HEMATOCRIT 47.1 % (36-54); HEMOGLOBIN 16.3 g/dL (14.0-18.0); MEAN CORPUSCULAR HEMOGLOBIN 31 pg (27-31); MEAN CORPUSCULAR HGB CONC 35 % (32-36); MEAN CORPUSCULAR VOLUME 90 fL (79.0-98.0); PLATELET COUNT (AUTO) 415 K/uL (130-430); RED BLOOD CELL COUNT(AUTO) 5.26 MIL/uL (4.2-6.2); WHITE BLOOD COUNT (AUTO) 8.3 K/uL (4.8-10.8)
[2018-09-14 11:39] LABS: BASOPHILS # (AUTO) 0.1 K/uL (0.0-0.2); BASOPHILS % (AUTO) 1.2 % (0.0-2.0); EOSINOPHILS # (AUTO) 0.2 K/uL (0.0-0.4); EOSINOPHILS % (AUTO) 2.5 % (0.0-4.0); LYMPHOCYTES # (AUTO) 1.4 K/uL (1.0-5.5); LYMPHOCYTES % (AUTO) 16.7 % (20.5-51.5); MONOCYTES # (AUTO) 0.5 K/uL (0.0-1.0); MONOCYTES % (AUTO) 6.4 % (1.7-9.3); NEUTROPHILS # (AUTO) 6.1 K/uL (1.8-7.7); NEUTROPHILS % (AUTO) 73.2 % (40.0-70.0)
[2018-09-14 12:05] LABS: ALBUMIN 4.1 g/dL (3.4-4.8); CALCIUM 9.3 mg/dL (8.4-11.0); CREATININE 1.19 mg/dL (0.55-1.30); POTASSIUM 4.1 mmol/L (3.5-5.1); THYROID STIMULATING HORMONE 0.9 uIu/mL (0.34-4.82); TOTAL BILIRUBIN 0.5 mg/dL (0.0-1.0); URIC ACID 8.5 mg/dL (2.4-7.0)
[2018-09-15 11:30] LABS: HEMOGLOBIN A1C 6.9 % (4.8-5.6)
[2018-09-15 12:35] LABS: CREATININE, URINE 30.2 mg/dL; MICROALBUMIN/CREAT RATIO, UR <9.9 MG/G CRE (0.0-30.0)
[2018-09-15 12:36] LABS: MICROALBUMIN URINE RANDOM < 3.0 ug/ml (NOT ESTABLISHED)
== END 2018-09-14 21:22 | disposition home or self-care (01) ==
LOC: SLB 10:44
PROVIDERS: ATTEND Internal Medicine
DX: Z00.00 Encounter for general adult medical examination without abnormal findings (principal); D64.9 Anemia, unspecified; R73.9 Hyperglycemia, unspecified; E78.5 Hyperlipidemia, unspecified; E55.9 Vitamin D deficiency, unspecified; E07.9 Disorder of thyroid, unspecified
CPT/HCPCS: 36415; 80053; 80061; 81003; 82043; 82306; 82570; 82607; 83036; 84443-TC; 84550-TC; 85025

== ENCOUNTER 2019-08-17 19:04 | Emergency (ER) | payer OTHER ==
[~2019-08-17] VITALS: Ht 170.2 cm; Wt 96.2 kg
[2019-08-17 19:04] VITALS: BP_SYST 147
[~2019-08-17 19:04] MED LIST changes: +OLME20TA13 PO; -OLME20TA14 PO
--- NOTE | 2019-08-17 19:04 | NUR ---
Patient to ER bed 4 to gown for evaluation. Side rails up.
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
--- NOTE | 2019-08-17 19:06 | NUR ---
ER Dr. Crooks at bedside examining patient.
[2019-08-17 19:40] VITALS: BP_SYST 147
--- NOTE | 2019-08-17 19:40 | NUR ---
Patient given written and verbal discharge instructions and verbalizes understanding. ER MD Crooks discussed with patient the results and treatment provided. Patient in stable condition. ID arm band removed. Rx of Tramadol and Naprosyn given. Patient educated on pain management and to follow up with PMD. Pain Scale 0/10. Opportunity for questions provided and answered. Medication side effect fact sheet provided.
== END 2019-08-17 19:40 | disposition home or self-care (01) ==
LOC: SED 19:04
DX: M25.532 Pain in left wrist (principal); E11.29 Type 2 diabetes mellitus with other diabetic kidney complication; N28.9 Disorder of kidney and ureter, unspecified; I10 Essential (primary) hypertension; G47.30 Sleep apnea, unspecified; Z87.442 Personal history of urinary calculi; Z90.49 Acquired absence of other specified parts of digestive tract; Z79.899 Other long term (current) drug therapy; Z88.8 Allergy status to other drugs, medicaments and biological substances
CPT/HCPCS: 99283

== ENCOUNTER 2020-04-23 09:19 | Outpatient (CLI) | payer OTHER ==
[2020-04-23 10:01] LABS: BILIRUBIN,URINE NEGATIVE (NEGATIVE); BLOOD, URINE NEGATIVE (NEGATIVE); CLARITY/URINE CLEAR (CLEAR); COLOR,URINE YELLOW (YELLOW); GLUCOSE,URINE NEGATIVE (NEGATIVE); KETONES,URINE NEGATIVE (NEGATIVE); LEUKOCYTE ESTERASE ,URINE NEGATIVE (NEGATIVE); NITRITE, URINE NEGATIVE (NEGATIVE); PROTEIN URINE NEGATIVE (NEGATIVE); UROBILINOGEN,URINE 0.2 (0.2-1.0)
[2020-04-23 10:02] LABS: BASOPHILS # (AUTO) 0.1 K/uL (0.0-0.2); BASOPHILS % (AUTO) 1.4 % (0.0-2.0); EOSINOPHILS # (AUTO) 0.4 K/uL (0.0-0.4); EOSINOPHILS % (AUTO) 3.8 % (0.0-4.0); HEMATOCRIT 49.3 % (36-54); LYMPHOCYTES % (AUTO) 20.5 % (20.5-51.5); MEAN CORPUSCULAR HEMOGLOBIN 31 pg (27-31); MEAN CORPUSCULAR HGB CONC 34 % (32-36); MEAN CORPUSCULAR VOLUME 90 fL (79.0-98.0); MONOCYTES # (AUTO) 0.6 K/uL (0.0-1.0); MONOCYTES % (AUTO) 5.8 % (1.7-9.3); NEUTROPHILS # (AUTO) 6.6 K/uL (1.8-7.7); NEUTROPHILS % (AUTO) 68.5 % (40.0-70.0); PLATELET COUNT (AUTO) 436 K/uL (130-430); RED BLOOD CELL COUNT(AUTO) 5.51 MIL/uL (4.2-6.2); RED CELL DISTRIBUTION WIDTH 12.7 % (9.0-15.0); WHITE BLOOD COUNT (AUTO) 9.6 K/uL (4.8-10.8)
[2020-04-23 10:40] LABS: ALBUMIN 4.5 g/dL (3.4-4.8); CALCIUM 9.3 mg/dL (8.4-11.0); CREATININE 1.15 mg/dL (0.55-1.30); THYROID STIMULATING HORMONE 1.11 uIu/mL (0.36-3.74); TOTAL BILIRUBIN 0.6 mg/dL (0.0-1.0)
[2020-04-24 08:06] LABS: PROSTATE SPECIFIC AG 1.4 ng/mL (0.0-4.0)
[2020-04-25 21:06] LABS: TESTOSTERONE, FREE (DIRECT) 12.3 pg/mL (6.8-21.5)
[2020-04-27 15:02] LABS: HEMOGLOBIN A1C 8.1 % (4.8-5.6); TESTOSTERONE, SERUM TOTAL 252 ng/dL (264-916)
== END 2020-04-23 20:51 | disposition home or self-care (01) ==
LOC: SLB 09:19
PROVIDERS: ATTEND Internal Medicine
DX: Z00.00 Encounter for general adult medical examination without abnormal findings (principal)
CPT/HCPCS: 36415; 80053; 80061; 81003; 82306; 82607; 83036; 84153; 84402; 84403; 84443-TC; 85025

== ENCOUNTER 2020-05-02 08:25 | Emergency (ER) | payer OTHER ==
[~2020-05-02] VITALS: Ht 170.2 cm; Wt 95.3 kg
[2020-05-02 08:25] VITALS: BP_SYST 152
--- NOTE | 2020-05-02 08:25 | NUR ---
BROUGHT BACK TO BED #7 AND TRIAGED. REPORT GIVEN TO ERMA
--- NOTE | 2020-05-02 08:30 | NUR ---
Patient presented to ER C/O of kidney stones. Patient ambulatory to ER, A&Ox4, afebrile, skin pink & warm, pain 8/10. Patient states he has Kidney stone symptoms x7 days. Patient report today flank pain; urethra pain today but now resolved. Patient reports HX of kiney stones.
--- NOTE | 2020-05-02 08:42 | NUR ---
ER Dr. Delatorre at bedside examining patient.
[2020-05-02] MEDS ORDERED: KETOROLAC TROMETHAMINE 30 MG VIAL IVP ONE (08:45)
[2020-05-02] MEDS ORDERED: ONDANSETRON HCL 4 MG/2 ML VIAL IVP ONE (09:00)
[2020-05-02 09:01] LABS: BASOPHILS # (AUTO) 0.1 K/uL (0.0-0.2); BASOPHILS % (AUTO) 1.1 % (0.0-2.0); EOSINOPHILS # (AUTO) 0.3 K/uL (0.0-0.4); EOSINOPHILS % (AUTO) 2.4 % (0.0-4.0); HEMATOCRIT 44.5 % (36-54); HEMOGLOBIN 15.1 g/dL (14.0-18.0); LYMPHOCYTES # (AUTO) 1.3 K/uL (1.0-5.5); LYMPHOCYTES % (AUTO) 11.2 % (20.5-51.5); MEAN CORPUSCULAR HEMOGLOBIN 31 pg (27-31); MEAN CORPUSCULAR HGB CONC 34 % (32-36); MEAN CORPUSCULAR VOLUME 91 fL (79.0-98.0); MONOCYTES # (AUTO) 0.9 K/uL (0.0-1.0); NEUTROPHILS # (AUTO) 9.1 K/uL (1.8-7.7); NEUTROPHILS % (AUTO) 77.3 % (40.0-70.0); PLATELET COUNT (AUTO) 416 K/uL (130-430); RED BLOOD CELL COUNT(AUTO) 4.91 MIL/uL (4.2-6.2); WHITE BLOOD COUNT (AUTO) 11.7 K/uL (4.8-10.8)
[2020-05-02 09:23] LABS: CREATININE 1.45 mg/dL (0.55-1.30)
[2020-05-02 09:28] LABS: ALBUMIN 4.1 g/dL (3.4-4.8); TOTAL BILIRUBIN 0.4 mg/dL (0.0-1.0)
--- NOTE | 2020-05-02 09:35 | NUR ---
ER at bedside discussing treatment patient
[2020-05-02 09:45] VITALS: BP_SYST 152
--- NOTE | 2020-05-02 09:45 | NUR ---
Patient given written and verbal discharge instructions and verbalizes understanding. ER MD discussed with patient the results and treatment provided. Patient in stable condition. ID arm band removed. IV catheter removed intact and dressing applied, no active bleeding. Rx of flowmax given. Patient educated on pain management and to follow up with PMD. Pain Scale 0/10. Opportunity for questions provided and answered. Medication side effect fact sheet provided.
--- NOTE | 2020-05-02 11:10 | NUR ---
Note undone in EDM - 05/02/20 at 1145 by SDEDTD Patient given written and verbal discharge instructions and verbalizes understanding. ER discussed with patient the results and treatment provided. Patient in stable condition. ID arm band removed. Rx of Flowmax given. Patient educated on pain management and to follow up with PMD. Pain Scale 0/10. Opportunity for questions provided and answered. Medication side effect fact sheet provided.
== END 2020-05-02 09:45 | disposition home or self-care (01) ==
LOC: SED 08:25
DX: K80.20 Calculus of gallbladder without cholecystitis without obstruction (principal); I10 Essential (primary) hypertension; E11.29 Type 2 diabetes mellitus with other diabetic kidney complication; N28.9 Disorder of kidney and ureter, unspecified; G47.30 Sleep apnea, unspecified; Z87.442 Personal history of urinary calculi; Z79.899 Other long term (current) drug therapy; Z88.8 Allergy status to other drugs, medicaments and biological substances
CPT/HCPCS: 36415; 80053; 81002; 85025; 96374; 96375; 99284

== ENCOUNTER 2020-06-02 08:29 | Outpatient (CLI) | payer OTHER | END 2020-06-02 20:18 | disposition home or self-care (01) | LOC: SUS 08:29 | PROVIDERS: ATTEND Internal Medicine | DX: K76.0 Fatty (change of) liver, not elsewhere classified (principal); N28.1 Cyst of kidney, acquired; R94.5 Abnormal results of liver function studies | CPT/HCPCS: 76700-TC ==

== ENCOUNTER 2020-06-14 08:58 | Emergency (ER) | payer OTHER, SELFPAY ==
[~2020-06-14] VITALS: Ht 170.2 cm; Wt 92.5 kg
[2020-06-14 08:58] VITALS: BP_SYST 132
== END 2020-06-14 13:08 | disposition home or self-care (01) ==
LOC: SED 08:58
DX: U07.1 COVID-19 (principal); I10 Essential (primary) hypertension; E11.9 Type 2 diabetes mellitus without complications; Z88.8 Allergy status to other drugs, medicaments and biological substances; Z79.899 Other long term (current) drug therapy; Z79.84 Long term (current) use of oral hypoglycemic drugs
CPT/HCPCS: 71045; 86710; 87426; 99284; C9803; U0003; 36415